=== PATIENT | male | born 1965 | race Caucasian/White ===

== ENCOUNTER 2016-10-16 05:57 | Inpatient (IN) | payer BC ==
[~2016-10-16] VITALS: Ht 180 cm; Wt 115.9 kg
--- NOTE | ~2016-10-16 | ST ---
[place], [place] EXERCISE STRESS TEST REPORT NAME: [facility]PEZ SR [facility]: [id number] UN[facility] #: [id number] ROOM: 511 DOCTOR: GIOVANA JENNINGS MD BIRTHDATE: [birth year] DOS: 10/17/2016 EXERCISE/PHARMACOLOGIC STRESS TEST REASON FOR STUDY: Vertigo, chest heaviness, family history of coronary artery disease. PROTOCOL: The patient walked on a full Jacinto protocol stress test for 6 minutes 48 seconds and achieved a maximum heart rate of 131, which represented a 78% of his maximum predicted heart rate. He had to slow down at that point because of leg discomfort and burning. He denied any chest pain throughout this. At peak exercise, he did have [address] segment depression in the inferior and lateral leads that resolved whenever he slowed down. His peak blood pressure was 170/84. He was given regadenoson intravenously for completion of the test. A 40 seconds after the infusion of regadenoson, he was given radionuclide intravenously. He did not have significant symptoms with the infusion of regadenoson. IMPRESSION: 1. Somewhat limited exercise capacity due to leg burning. The patient demonstrated normal chronotropic competence and achieved 78% of his maximum predicted heart rate at a workload of 7 METS. 2. Regadenoson administered without complications. 3. Radionuclide administered. Please see the separate imaging report for further details of the patient's stress test results. GIOVANA JENNINGS MD CM:STRESS:EXERCISE STRESS TEST REPORT [id number] GIOVANA JENNINGS MD
--- NOTE | ~2016-10-16 | CON ---
[place], [place] REPORT OF CONSULTATION NAME: STEF YEPEZ SR UNIT #: [id number] ROOM: 511 DOCTOR: GIOVANA JENNINGS MD BIRTHDATE: [birth year] DOS: 10/16/2016 REASON FOR CONSULTATION: Bradycardiac, acute diaphoresis, nausea and vomiting. HISTORY OF PRESENT ILLNESS: The patient is a 50-year-old man who states that he does have a history of hypothyroidism which has been present for over 10 years. He has been on thyroid replacement, but does admit that he occasionally forgets to take his pills. He does complain of constant fatigue and does admit that he has sleep apnea syndrome. He states that he was tested for sleep apnea, but could not tolerate CPAP despite being tested with a variety of masks. The patient was otherwise in his normal state of health last night when he went to bed. At about 4:00 a.m., he awoke feeling hot and diaphoretic. He also felt like the room was spinning. He had to hold on to wall to maintain his balance, otherwise he felt that he would fall to the ground. He denied actual lightheadedness, but felt that he and everything around him was spinning. He did become nauseous and vomited. He sat in front of a fan, but could not get cool. After about an hour of this, he told his who demanded that he come to the Emergency Room. He states that by the time he arrived, he was starting to feel better. Since arrival, his electrocardiogram has shown no acute changes and cardiac biomarkers have been negative. PAST MEDICAL HISTORY: Includes: 1. Hypothyroidism present since about 2004. 2. Gout. 3. Obstructive sleep apnea documented by appropriate testing. The patient states that he is intolerant of CPAP and does not use the machine. MEDICATIONS: Prior to admission: Levothyroxine 225 mcg daily, allopurinol 100 mg daily, ibuprofen 800 mg q. 8 hours p.r.n. and the patient believes that he also takes colchicine if needed for gout attack. ALLERGIES: The patient lists no known drug allergies, but believes that he had an adverse effect from testosterone injections a few years ago. REVIEW OF SYSTEMS: The patient denies diplopia or loss of vision. He did have true vertigo this morning, but has since resolved. He denies syncope. He does have occasional lightheadedness. He denies nausea or vomiting until today. He did have an episode of vomiting associated with vertigo. He denies fevers, chills or sweats. He denies any recent illnesses or change in his weight. He denies orthopnea or PND. He denies focal weakness. He denies hemoptysis or hematemesis. He denies change in bowel or bladder habits. He denies blood in his stools or urine. He denies heat or cold intolerance under normal circumstances, but lately he has had some cold intolerance. He denies peripheral edema. The remainder of the review of systems is negative except as noted above. FAMILY HISTORY: The patient's father of heart attack at age 79. His father apparently did have a history of a slow heartbeat. [place], [place] REPORT OF CONSULTATION NAME: STEF YEPEZ SR UNIT #: [id number] ROOM: [facility] DOCTOR: GIOVANA JENNINGS MD BIRTHDATE: [birth year] SOCIAL HISTORY: The patient is and lives with his . 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 PHYSICAL EXAMINATION: GENERAL: The patient is a well-nourished white male who is awake, alert and oriented. VITAL SIGNS: Pulse is 50 and regular, blood pressure is 130/80. He is afebrile. He weighs 115.9 kilograms with a body mass index of 35.7. HEENT: Normocephalic, atraumatic. Extraocular muscles are intact. Sclerae are clear. Pupils are equal, round and reactive to light. The oral mucosa is moist. Tongue is midline. NECK: Supple. He has no jugular distention. Carotids are full. I heard no bruits. He had no neck or supraclavicular masses and no thyromegaly. LUNGS: Respirations are unlabored. His chest is clear to auscultation and percussion. He had no presacral edema or chest wall tenderness. CARDIOVASCULAR: His heart had a regular rhythm. He had a fourth heart sound, but no third heart sound or murmur. The PMI was not displaced. He had no precordial heave, lift or thrill. ABDOMEN: Soft and normally active without masses, organomegaly or bruits. EXTREMITIES: Showed no edema. Peripheral pulses are easily palpated bilaterally. LABORATORY DATA: I reviewed his electrocardiogram, which showed sinus bradycardia, but was otherwise normal. His TSH was somewhat elevated at 8.75. Troponin levels were normal x 2. Sodium is 145, potassium 4.1, BUN is 15, creatinine is 1.13. IMPRESSION: 1. Acute vertigo associated with diaphoresis, nausea, vomiting and poor balance. The episode began while the patient was sleeping and has improved dramatically since then. 2. Bradycardia on admission, etiology not yet determined. The patient may have a component of conduction system disorder and his heart rate may also be slowed by the fact that his thyroid is not adequately replaced at this time. 3. Obstructive sleep apnea. 4. Noncompliance with continuous positive airway pressure. 5. Intermittent noncompliance with medications. PLAN: We will continue to monitor the patient in the hospital. If his cardiac biomarkers remain normal, I think that he should undergo an exercise myocardial perfusion study. This would help us to make sure that he does not have chronotropic incompetence. It will also show whether or not coronary artery disease could be the cause of his acute diaphoresis. I will also be getting a carotid ultrasound to evaluate for vertebrobasilar disease that could cause acute vertigo. Finally, his monitor will hopefully show us whether or not he has paroxysmal atrial fibrillation, which could result in cerebrovascular event. We may have him wear a monitor as an outpatient if nothing is found over the next 24 hours in the hospital. [place], [place] REPORT OF CONSULTATION [facility]: [id number] UNIT #: [id number] ROOM: 511 DOCTOR: GIOVANA JENNINGS MD BIRTHDATE: [birth year] I thank the hospitalist service for asking our advice regarding the assessment of this patient. GIOVANA JENNINGS MD CM:CONSTR:REPORT OF CONSULTATION 0950 10/16/16 2215 interface
--- NOTE | ~2016-10-16 | PR ---
[place], [place] PROGRESS NOTE NAME: STEF YEPEZ SR UNIT #: [id number] ROOM: 511 DOCTOR: GIOVANA JENNINGS MD BIRTHDATE: [birth year] DOS: 10/17/2016 SUBJECTIVE: The patient was seen today, 10/17/2016 for Cardiology followup. He states that he had felt better overnight. He denies any further vertigo and his breathing has been fine. He has no chest pain. Since yesterday, a carotid ultrasound study has been done and shows no signs of significant carotid stenosis. CT scan of the head also showed no acute intracranial findings. He has remained relatively bradycardic since admission. PHYSICAL EXAMINATION: VITAL SIGNS: Today, his pulse is 50 and regular, blood pressure is 124/73. He is afebrile. He weighs 115.9 kilograms with a body mass index of 35.8. HEENT: Normocephalic, atraumatic. Extraocular muscles are intact. Sclerae are clear. Pupils are round and reactive to light. NECK: Supple. He has no jugular distention. Carotids are full without bruits. LUNGS: Respirations are unlabored. His chest is clear to auscultation and percussion. HEART: Has a regular rhythm with an S4 gallop. ABDOMEN: Benign. EXTREMITIES: Showed no edema. LABORATORY DATA: Electrocardiogram today showed sinus rhythm and no acute changes. IMPRESSION: 1. Acute vertigo associated with diaphoresis, nausea, vomiting and poor balance. The episode began while the patient was sleeping and has essentially resolved in the last 24 hours. 2. Bradycardia, etiology not yet determined. The patient may have a conduction system disorder and his heart rate ____ slow due to the fact that his thyroid is not adequately replaced. 3. Obstructive sleep apnea. 4. Noncompliance with CPAP. 5. Intermittent noncompliance with medications. PLAN: I will review his echocardiogram today. We will also do an exercise myocardial perfusion study today. Further recommendations will depend upon the results of testing. We thank Dr. Art and the hospitalist group for asking our advice regarding his management. [place], [place] PROGRESS NOTE NAME: STEF YEPEZ SR UNIT #: [id number] ROOM: 511 DOCTOR: GIOVANA JENNINGS MD BIRTHDATE: [birth year] GIOVANA JENNINGS MD CM:PNTRANS 53 GIOVANA JENNINGS MD 10/17/162052 interface
--- NOTE | ~2016-10-16 | WRIGHTHP ---
[place], [place] PATIENT HISTORY AND PHYSICAL EXAM NAME: STEF YEPEZ SR [facility] #: [id number] UNIT #: [id number] ROOM: 511 DOCTOR: NICOLE CROWELL DO BIRTHDATE: [birth year] DOS: 10/16/2016 PRIMARY CARE PHYSICIAN: Dr. Jazmyne Ronquillo [facility]. The patient was seen and evaluated with the resident on 10/16/2016. Please see the resident's note for other details. ASSESSMENT: 1. Acute dizziness/vertigo, which awakened him from sleeping at 4:00 a.m. today. Symptoms had improved since being admitted. 2. Sinus bradycardia, possibly contributing to the dizziness. 3. Nausea and vomiting secondary to the vertigo. This has resolved. 4. Hypothyroidism, currently uncontrolled, most likely secondary to medication noncompliance. 5. Hyperlipidemia. 6. History of gout. PLAN: The patient will be kept again overnight in the hospital. Continue to monitor him on the groundwater monitoring technician. Cardiology has been consulted. A stress test has been ordered for tomorrow. Echocardiogram has been ordered. NICOLE CROWELL DO CM:HISPHYS:PATIENT HISTORY AND PHYSICAL EXAMINATION 1202 1300 NICOLE CROWELL DO 10/16/16 1259 interface
[~2016-10-16 05:57] MED LIST: NORTRIPTYLINE H10 M1 PO; SYNTHROID0.3 MG PO; VIBRA-TABS100 MG PO
[2016-10-16 06:02] VITALS: BP 149/94
[2016-10-16 06:22] LABS: BASO % 0.3 % (0.0-1.0); EOS # 0.2 10*3/uL (0.0-0.4); EOS % 2.5 % (1.0-4.0); HEMOGLOBIN 15.1 g/dl (14.0-18.0); LYMPH # 1.5 10*3/uL (1.3-4.4); LYMPH % 25.3 % (27.0-41.0); MEAN CELL VOLUME 91.6 fl (80.0-94.0); MEAN CORPUSCULAR HGB 30.8 pg (27.0-31.0); MEAN CORPUSCULAR HGB CONC 33.6 g/dl (33.0-37.0); MONO # 0.6 10*3/uL (0.1-1.0); MONO % 9.4 % (3.0-9.0); NEUT # 3.8 10*3/uL (2.3-7.9); NEUT % 62.3 % (47.0-73.0); PLATELET COUNT AUTOMATED 162 10*3/uL (130-400); RED BLOOD COUNT 4.91 10*6/uL (4.50-5.90); RED CELL DISTRI WIDTH 12.8 % (0-14.5); WHITE BLOOD COUNT 6.1 10*3/uL (4.8-10.8)
[2016-10-16 06:40] LABS: PROTHROMBIN TIME 10.6 SECONDS (9.0-12.4)
[2016-10-16 06:42] LABS: ALBUMIN 3.5 gm/dl (3.1-4.5); ALKALINE PHOSPHATASE 47 U/L (45-117); BILIRUBIN, TOTAL 0.3 mg/dl (0.2-1.0); BUN 15 mg/dl (7-24); CARBON DIOXIDE 27 mmol/L (21-32); CHLORIDE 108 mmol/L (98-107); EST GLOM FILT AFRICAN AMERICAN > 60 ml/min; GLUCOSE 123 mg/dL (65-99); POTASSIUM 4.1 mmol/L (3.5-5.1); SGOT/AST 31 IU/L (3-35); SGPT/ALT 41 U/L (12-78); SODIUM 145 mmol/L (136-145); TOTAL PROTEIN 6.7 gm/dL (6.4-8.2)
[2016-10-16 06:43] LABS: TROPONIN I < 0.015 ng/ml (<0.045)
[2016-10-16 07:25] VITALS: BP 128/79
[2016-10-16 08:00] VITALS: BP 130/80
[2016-10-16] MEDS ORDERED: ALLOPURINOL100 MG PO (09:09)
[2016-10-16] MEDS ORDERED: SYNTHROID25 MCG PO (09:13)
[2016-10-16] MEDS ORDERED: Synthroid,Lev200 MCG PO (09:13)
[2016-10-16] MEDS ORDERED: IBU800 MG PO (09:14)
[2016-10-16 11:50] LABS: BILIRUBIN NEGATIVE (NEGATIVE); BLOOD NEGATIVE (NEGATIVE); CLARITY CLEAR (CLEAR); COLOR YELLOW (YELLOW); GLUCOSE NEGATIVE (NEGATIVE); KETONE NEGATIVE (NEGATIVE); LEUKO ESTERASE NEGATIVE (NEGATIVE); NITRITE NEGATIVE (NEGATIVE); PH 5.5 (5.0-9.0); PROTEIN NEGATIVE (NEGATIVE); SPECIFIC GRAVITY 1.015 (1.005-1.030); UROBILINOGEN 0.2 E.U./dl (0.2-1.0)
[2016-10-16 12:00] LABS: EPITHELIAL CELLS 0-2; MUCOUS 1+; RBC 0-2 rbc/hpf (0-2); URINE REFLEX COMMENT NO (NO)
[2016-10-16 16:00] VITALS: BP 129/71
[2016-10-16 20:00] VITALS: BP 145/92
[2016-10-17] VITALS: BP 120/69
[2016-10-17 06:10] LABS: BASO % 0.5 % (0.0-1.0); EOS # 0.2 10*3/uL (0.0-0.4); EOS % 3.1 % (1.0-4.0); HEMATOCRIT 46.4 % (42.0-52.0); HEMOGLOBIN 15.5 g/dl (14.0-18.0); LYMPH # 1.8 10*3/uL (1.3-4.4); LYMPH % 28.9 % (27.0-41.0); MEAN CELL VOLUME 93.7 fl (80.0-94.0); MEAN CORPUSCULAR HGB 31.3 pg (27.0-31.0); MEAN CORPUSCULAR HGB CONC 33.4 g/dl (33.0-37.0); MEAN PLATELET VOLUME 11.4 fl (9.6-12.3); MONO # 0.6 10*3/uL (0.1-1.0); MONO % 10.3 % (3.0-9.0); NEUT # 3.5 10*3/uL (2.3-7.9); PLATELET COUNT AUTOMATED 171 10*3/uL (130-400); RED BLOOD COUNT 4.95 10*6/uL (4.50-5.90); RED CELL DISTRI WIDTH 13.1 % (0-14.5); WHITE BLOOD COUNT 6.1 10*3/uL (4.8-10.8)
[2016-10-17 06:34] LABS: HEMOGLOBIN A1c 5.7 % (4.8-5.6)
[2016-10-17 06:48] LABS: CHLORIDE 106 mmol/L (98-107); SODIUM 144 mmol/L (136-145)
[2016-10-17 06:59] LABS: FOLIC ACID 10.2 ng/mL (>5.38); VITAMIN D, 25-HYDROXY 16.5 ng/mL (30-100)
[2016-10-17 07:50] LABS: ALBUMIN 3.6 gm/dl (3.1-4.5); ALKALINE PHOSPHATASE 48 U/L (45-117); BILIRUBIN, TOTAL 0.3 mg/dl (0.2-1.0); BUN 14 mg/dl (7-24); CARBON DIOXIDE 27 mmol/L (21-32); CHOLESTEROL 195 mg/dL (<200); EST GLOM FILT AFRICAN AMERICAN > 60 ml/min; FREE T4 0.89 ng/dl (0.76-1.46); GLUCOSE 95 mg/dL (65-99); HDL CHOLESTEROL 32 mg/dl (40-60); MAGNESIUM 2.1 mg/dL (1.5-2.1); PHOSPHOROUS 3.1 mg/dL (2.5-4.9); SGOT/AST 32 IU/L (3-35); SGPT/ALT 41 U/L (12-78); TRIGLYCERIDES 404 mg/dl (<150)
[2016-10-17 08:00] VITALS: BP 124/73
[2016-10-17 12:00] VITALS: BP 146/82
[2016-10-17 16:00] VITALS: BP 153/89
[2016-10-17 18:39] VITALS: BP 110/72
[2016-10-17 20:00] VITALS: BP 132/76
[2016-10-18] VITALS: BP 102/62
[2016-10-18 06:17] LABS: BASO % 0.3 % (0.0-1.0); EOS # 0.2 10*3/uL (0.0-0.4); EOS % 3.7 % (1.0-4.0); HEMATOCRIT 44.5 % (42.0-52.0); HEMOGLOBIN 14.9 g/dl (14.0-18.0); LYMPH # 1.8 10*3/uL (1.3-4.4); LYMPH % 30.6 % (27.0-41.0); MEAN CELL VOLUME 92.7 fl (80.0-94.0); MEAN CORPUSCULAR HGB CONC 33.5 g/dl (33.0-37.0); MEAN PLATELET VOLUME 11.1 fl (9.6-12.3); MONO # 0.7 10*3/uL (0.1-1.0); MONO % 11.7 % (3.0-9.0); NEUT # 3.1 10*3/uL (2.3-7.9); NEUT % 53.4 % (47.0-73.0); PLATELET COUNT AUTOMATED 164 10*3/uL (130-400); RED CELL DISTRI WIDTH 12.9 % (0-14.5); WHITE BLOOD COUNT 5.7 10*3/uL (4.8-10.8)
[2016-10-18 06:35] LABS: BUN 16 mg/dl (7-24); CARBON DIOXIDE 27 mmol/L (21-32); CHLORIDE 107 mmol/L (98-107); EST GLOM FILT AFRICAN AMERICAN > 60 ml/min; GLUCOSE 99 mg/dL (65-99); POTASSIUM 4.2 mmol/L (3.5-5.1); SODIUM 146 mmol/L (136-145)
[2016-10-18 08:00] VITALS: BP 138/79
== END 2016-10-18 12:59 | disposition home or self-care (01) | DRG 149 ==
LOC: ED 05:57 → EDHOLD 07:14 → 5E 07:29
PROVIDERS: Emergency Medicine Emergency Medical Services; Hospitalist
DX: R42 Dizziness and giddiness (principal); R00.1 Bradycardia, unspecified; F32.9 Major depressive disorder, single episode, unspecified; E03.9 Hypothyroidism, unspecified; E78.5 Hyperlipidemia, unspecified; G47.33 Obstructive sleep apnea (adult) (pediatric); R61 Generalized hyperhidrosis; M10.9 Gout, unspecified; Z80.41 Family history of malignant neoplasm of ovary; Z82.49 Family history of ischemic heart disease and other diseases of the circulatory system; Z79.899 Other long term (current) drug therapy; Z91.14 Patient's other noncompliance with medication regimen; Z91.19 Patient's noncompliance with other medical treatment and regimen

== ENCOUNTER → 2017-03-31 | Outpatient (CLI) | payer BC ==
[~2017-03-31] MED LIST changes: +ALLOPURINOL100 MG PO; +IBU800 MG PO; +SYNTHROID25 MCG PO; +Synthroid,Lev200 MCG PO
[2017-03-31 08:09] LABS: HEMATOCRIT 45.7 % (42.0-52.0); HEMOGLOBIN 15.5 g/dl (14.0-18.0); MEAN CELL VOLUME 91.8 fl (80.0-94.0); MEAN CORPUSCULAR HGB 31.1 pg (27.0-31.0); MEAN CORPUSCULAR HGB CONC 33.9 g/dl (33.0-37.0); MEAN PLATELET VOLUME 11.2 fl (9.6-12.3); RED BLOOD COUNT 4.98 10*6/uL (4.50-5.90); RED CELL DISTRI WIDTH 12.8 % (0-14.5); WHITE BLOOD COUNT 5.9 10*3/uL (4.8-10.8)
[2017-03-31 08:26] LABS: ALBUMIN 3.9 gm/dl (3.1-4.5); ALKALINE PHOSPHATASE 52 U/L (45-117); BUN 20 mg/dl (7-24); CHLORIDE 108 mmol/L (98-107); CHOLESTEROL 192 mg/dL (<200); CREATININE 1.15 mg/dL (0.70-1.30); SGOT/AST 41 IU/L (3-35); SGPT/ALT 48 U/L (12-78); SODIUM 142 mmol/L (136-145); TOTAL PROTEIN 7.6 gm/dL (6.4-8.2); TRIGLYCERIDES 210 mg/dl (<150); URIC ACID 8.3 mg/dL (3.5-7.2); VLDL CHOLESTEROL 42 mg/dL (6-40)
[2017-03-31 08:35] LABS: HDL CHOLESTEROL 30 mg/dl (40-60); LDL CHOLESTEROL 120 mg/dL (9-159)
== END | disposition home or self-care (01) ==
LOC: LAB 07:29
DX: Z12.5 Encounter for screening for malignant neoplasm of prostate (principal); E03.9 Hypothyroidism, unspecified; E78.5 Hyperlipidemia, unspecified; M10.9 Gout, unspecified; E55.9 Vitamin D deficiency, unspecified

== ENCOUNTER → 2017-04-14 | Outpatient (CLI) | payer BC | END | disposition home or self-care (01) | LOC: US 10:54 | DX: K83.1 Obstruction of bile duct (principal); E03.9 Hypothyroidism, unspecified ==

== ENCOUNTER → 2017-09-23 | Outpatient (CLI) | payer BC ==
[2017-09-23 08:42] LABS: HEMATOCRIT 45.9 % (42.0-52.0); HEMOGLOBIN 15.3 g/dl (14.0-18.0); MEAN CELL VOLUME 91.6 fl (80.0-94.0); MEAN CORPUSCULAR HGB 30.5 pg (27.0-31.0); MEAN CORPUSCULAR HGB CONC 33.3 g/dl (33.0-37.0); MEAN PLATELET VOLUME 10.7 fl (9.6-12.3); RED BLOOD COUNT 5.01 10*6/uL (4.50-5.90); RED CELL DISTRI WIDTH 12.6 % (0-14.5); WHITE BLOOD COUNT 5.6 10*3/uL (4.8-10.8)
[2017-09-23 09:20] LABS: ALBUMIN 3.7 gm/dl (3.1-4.5); ALKALINE PHOSPHATASE 49 U/L (45-117); BUN 18 mg/dl (7-24); CHLORIDE 110 mmol/L (98-107); CHOLESTEROL 176 mg/dL (<200); CREATININE 1.02 mg/dL (0.70-1.30); HDL CHOLESTEROL 26 mg/dl (40-60); LDL CHOLESTEROL 104 mg/dL (9-159); POTASSIUM 3.8 mmol/L (3.5-5.1); SGOT/AST 42 IU/L (3-35); SGPT/ALT 52 U/L (12-78); SODIUM 145 mmol/L (136-145); TOTAL PROTEIN 7.2 gm/dL (6.4-8.2); TRIGLYCERIDES 232 mg/dl (<150); URIC ACID 6.9 mg/dL (3.5-7.2); VLDL CHOLESTEROL 46 mg/dL (6-40)
[2017-09-23 09:46] LABS: FREE T4 1.27 ng/dl (0.76-1.46)
== END | disposition home or self-care (01) ==
LOC: LAB 08:25
DX: M17.10 Unilateral primary osteoarthritis, unspecified knee (principal); M10.9 Gout, unspecified; E03.9 Hypothyroidism, unspecified; R79.89 Other specified abnormal findings of blood chemistry

== ENCOUNTER → 2017-11-23 | Day surgery (SDC) | payer BC ==
[~2017-11-23] VITALS: Ht 180.3 cm; Wt 113.4 kg
[~2017-11-23] MED LIST changes: +MOBIC15 MG PO
--- NOTE | ~2017-11-23 | PROC NOTE ---
[place], [place] PROCEDURE NOTE [id number] #: [id number] ROOM: DOCTOR: PRINCESS HOUSTON,IVANA BIRTHDATE: [birth year] DOS: PROCEDURE: Colonoscopy. INDICATIONS: History of colon polyps. Informed consent was obtained from the patient after indication of procedure, the alternatives and potential complications were explained to him. PROCEDURE MEDICATION: Sedation was administered by Anesthesiology Department. Scope used was Olympus pediatric colonoscope variable stiffness GIF-180, depth insertion was to the cecum, which was identified by the usual landmarks, the appendiceal orifice, the ileocecal valve and triangular fold, in addition to transillumination in the right lower quadrant. FINDINGS: After adequate sedation, the patient was placed in left lateral decubitus position. Rectal examination showed a normal sphincter tone and no external hemorrhoids. The scope was introduced into the rectum, then advanced to the cecum with no difficulty. The prep was good. Colon mucosa appeared normal with no evidence of polyps, diverticular ulcerations. Retroflexed views in the rectum showed grade 2 internal hemorrhoids. Scope was then withdrawn after the rectum was decompressed. The patient tolerated the procedure well. IMPRESSION: 1. Normal colon mucosa with no polyps seen. 2. Internal hemorrhoids. PLAN: There is no need for further GI workup at this time. Repeat surveillance colonoscopy is advised in 5 years. Office followup will be scheduled p.r.n. IVANA SÁNCHEZ MD CM:PROCNOTE:PROCEDURE NOTE [id number] IVANA SÁNCHEZ MD
[2017-11-23 08:21] VITALS: BP 116/74
[2017-11-23 09:05] VITALS: BP 94/49
[2017-11-23 09:20] VITALS: BP 96/52
[2017-11-23 09:35] VITALS: BP 109/55
== END | disposition home or self-care (01) ==
LOC: SDC 11-19 08:45
DX: Z12.11 Encounter for screening for malignant neoplasm of colon (principal); Z86.010 Personal history of colon polyps; K64.8 Other hemorrhoids; M19.90 Unspecified osteoarthritis, unspecified site; M10.9 Gout, unspecified; E07.9 Disorder of thyroid, unspecified; Z79.899 Other long term (current) drug therapy; Z98.890 Other specified postprocedural states; Z82.49 Family history of ischemic heart disease and other diseases of the circulatory system; Z80.41 Family history of malignant neoplasm of ovary

== ENCOUNTER → 2018-04-24 | Outpatient (CLI) | payer BC ==
[2018-04-24 07:55] LABS: HEMATOCRIT 46.8 % (42.0-52.0); HEMOGLOBIN 15.4 g/dl (14.0-18.0); MEAN CELL VOLUME 93.8 fl (80.0-94.0); MEAN CORPUSCULAR HGB 30.9 pg (27.0-31.0); MEAN CORPUSCULAR HGB CONC 32.9 g/dl (33.0-37.0); MEAN PLATELET VOLUME 10.8 fl (9.6-12.3); RED BLOOD COUNT 4.99 10*6/uL (4.50-5.90); RED CELL DISTRI WIDTH 12.7 % (0-14.5); WHITE BLOOD COUNT 4.7 10*3/uL (4.8-10.8)
[2018-04-24 08:22] LABS: ALBUMIN 3.8 gm/dl (3.1-4.5); ALKALINE PHOSPHATASE 46 U/L (45-117); BUN 18 mg/dl (7-24); CHLORIDE 111 mmol/L (98-107); CHOLESTEROL 188 mg/dL (<200); CREATININE 1.08 mg/dL (0.70-1.30); HDL CHOLESTEROL 29 mg/dl (40-60); LDL CHOLESTEROL 100 mg/dL (9-159); SGOT/AST 45 IU/L (3-35); SGPT/ALT 57 U/L (12-78); SODIUM 144 mmol/L (136-145); TOTAL PROTEIN 7.4 gm/dL (6.4-8.2); TRIGLYCERIDES 295 mg/dl (<150); VLDL CHOLESTEROL 59 mg/dL (6-40)
== END | disposition home or self-care (01) ==
LOC: US 02-26 09:30 → LAB 07:11 → US 07:30
PROVIDERS: Physician Assistant
DX: Z12.5 Encounter for screening for malignant neoplasm of prostate (principal); N63.24 Unspecified lump in the left breast, lower inner quadrant; M19.91 Primary osteoarthritis, unspecified site; M1A.9XX0 Chronic gout, unspecified, without tophus (tophi); E03.9 Hypothyroidism, unspecified

== ENCOUNTER → 2019-03-12 | Outpatient (CLI) | payer BC ==
[2019-03-12 12:44] LABS: BASO % 0.5 % (0.0-1.0); EOS # 0.2 10*3/uL (0.0-0.4); EOS % 2.8 % (1.0-4.0); HEMATOCRIT 47.7 % (42.0-52.0); HEMOGLOBIN 15.8 g/dl (14.0-18.0); LYMPH # 1.6 10*3/uL (1.3-4.4); LYMPH % 27.2 % (27.0-41.0); MEAN CELL VOLUME 94.8 fl (80.0-94.0); MEAN CORPUSCULAR HGB 31.4 pg (27.0-31.0); MEAN CORPUSCULAR HGB CONC 33.1 g/dl (33.0-37.0); MEAN PLATELET VOLUME 10.9 fl (9.6-12.3); MONO # 0.5 10*3/uL (0.1-1.0); MONO % 8.8 % (3.0-9.0); NEUT # 3.4 10*3/uL (2.3-7.9); NEUT % 60.5 % (47.0-73.0); PLATELET COUNT AUTOMATED 187 10*3/uL (130-400); RED BLOOD COUNT 5.03 10*6/uL (4.50-5.90); RED CELL DISTRI WIDTH 12.7 % (0-14.5); WHITE BLOOD COUNT 5.7 10*3/uL (4.8-10.8)
[2019-03-12 13:19] LABS: ALKALINE PHOSPHATASE 50 U/L (45-117); BUN 26 mg/dl (7-24); CHLORIDE 106 mmol/L (98-107); CREATININE 1.27 mg/dL (0.70-1.30); GAMMA GLUTAMYL TRANSPEPTIDASE 25 U/L (15-85); POTASSIUM 3.8 mmol/L (3.5-5.1); SGOT/AST 68 IU/L (3-35); SGPT/ALT 77 U/L (12-78); SODIUM 141 mmol/L (136-145); THYROXINE (T4) TOTAL 8.1 ug/dl (4.5-12.1); TOTAL PROTEIN 7.9 gm/dL (6.4-8.2); URIC ACID 9.1 mg/dL (3.5-7.2)
[2019-03-13 04:06] LABS: COMPLEMENT C4 001834 16 mg/dL (14-44); IMMUNOGLOBULIN G, QNT 1095 mg/dL (700-1600); RHEUMATOID ARTHRITIS FACTOR <10.0 IU/mL (0.0-13.9)
[2019-03-13 15:04] LABS: EPSTEIN-BARR VCA IGM AB <36.0 U/mL (0.0-35.9)
[2019-03-17 13:11] LABS: IGG P18 AB Absent (.); IGG P23 AB Absent (.); IGG P28 AB Absent (.); IGG P30 AB Absent (.); IGG P39 AB Absent (.); IGG P41 AB Present (.); IGG P45 AB Absent (.); IGG P58 AB Absent (.); IGG P63 AB Absent (.); IGG P66 AB Absent (.); IGM P23 AB Present (.); IGM P39 AB Absent (.); IGM P41 AB Absent (.); LYME IGG WB INTERPRETATION Negative (.); LYME IGM WB INTERPRETATION Negative (.)
== END | disposition home or self-care (01) ==
LOC: LAB 12:07
PROVIDERS: Internal Medicine
DX: A69.20 Lyme disease, unspecified (principal); M25.50 Pain in unspecified joint; R53.83 Other fatigue

== ENCOUNTER → 2019-07-18 | Outpatient (CLI) | payer BC ==
[2019-07-18 14:17] LABS: BASO % 0.6 % (0.0-1.0); EOS # 0.2 10*3/uL (0.0-0.4); EOS % 3.6 % (1.0-4.0); HEMATOCRIT 46.2 % (42.0-52.0); HEMOGLOBIN 15.4 g/dl (14.0-18.0); LYMPH # 2.2 10*3/uL (1.3-4.4); LYMPH % 34.2 % (27.0-41.0); MEAN CELL VOLUME 93.7 fl (80.0-94.0); MEAN CORPUSCULAR HGB 31.2 pg (27.0-31.0); MEAN CORPUSCULAR HGB CONC 33.3 g/dl (33.0-37.0); MEAN PLATELET VOLUME 11.5 fl (9.6-12.3); MONO # 0.9 10*3/uL (0.1-1.0); MONO % 13.8 % (3.0-9.0); NEUT % 47.2 % (47.0-73.0); PLATELET COUNT AUTOMATED 195 10*3/uL (130-400); RED BLOOD COUNT 4.93 10*6/uL (4.50-5.90); RED CELL DISTRI WIDTH 12.1 % (0-14.5); WHITE BLOOD COUNT 6.3 10*3/uL (4.8-10.8)
[2019-07-18 14:33] LABS: ALKALINE PHOSPHATASE 47 U/L (45-117); BUN 18 mg/dl (7-24); CHLORIDE 110 mmol/L (98-107); POTASSIUM 3.9 mmol/L (3.5-5.1); SGOT/AST 61 IU/L (3-35); SGPT/ALT 81 U/L (12-78); SODIUM 143 mmol/L (136-145); TOTAL PROTEIN 7.7 gm/dL (6.4-8.2); URIC ACID 8.9 mg/dL (3.5-7.2)
== END | disposition home or self-care (01) ==
LOC: LAB 13:48
PROVIDERS: Internal Medicine
DX: A69.20 Lyme disease, unspecified (principal); R53.83 Other fatigue; Z79.2 Long term (current) use of antibiotics